=== PATIENT | female | born 1940 ===

== ENCOUNTER 2023-12-18 07:30 | Outpatient (CLI) | payer OTHER | END 2023-12-18 07:31 | disposition home or self-care (01) | LOC: NUCLEAR 07:30 | PROVIDERS: ATTEND Internal Medicine | DX: I48.0 Paroxysmal atrial fibrillation (principal) | CPT/HCPCS: 78452; 93017; A9500; J1250 ==

== ENCOUNTER 2024-05-23 10:52 | Outpatient (CLI) | payer OTHER | END 2024-05-23 10:55 | disposition home or self-care (01) | LOC: NUCLEAR 10:52 | PROVIDERS: ATTEND Physical Medicine & Rehabilitation | DX: I87.323 Chronic venous hypertension (idiopathic) with inflammation of bilateral lower extremity (principal) ==

== ENCOUNTER → 2024-05-24 10:48 | Outpatient (CLI) | payer OTHER | END | disposition home or self-care (01) | LOC: NUCLEAR 10:48 | PROVIDERS: ATTEND Physical Medicine & Rehabilitation | DX: I77.9 Disorder of arteries and arterioles, unspecified (principal) ==